=== PATIENT | female | born 1985 | race Two or more races ===

== ENCOUNTER 2018-02-19 14:10 | Outpatient (CLI) | END 2018-02-19 16:50 | disposition home or self-care (01) ==

== ENCOUNTER 2018-02-24 12:54 | Outpatient (CLI) | END 2018-02-24 20:45 | disposition home or self-care (01) ==

== ENCOUNTER 2018-02-27 05:25 | Inpatient (IN) | END 2018-03-02 16:45 | disposition home or self-care (01) | DRG 788 ==